=== PATIENT | male | born 1985 | race Caucasian/White ===

== ENCOUNTER 2020-11-16 17:58 | Emergency (ER) | payer SELFPAY ==
[~2020-11-16] VITALS: Ht 175.3 cm; Wt 75.0 kg
[~2020-11-16 17:58] MED LIST: NO HOME MEDICATIONS
[2020-11-16 18:02] VITALS: TEMP 97.5
[2020-11-16 18:21] LABS: BASO % 0.8 % (0.0-2.0); EOS # 0.1 (0.0-0.7); EOS % 1.4 % (0-4.0); GRAN # 2.4 (1.4-6.5); GRAN % 46.8 % (42.2-75.2); HEMOGLOBIN 14.5 g/dl (13.5-18.0); LYMPH # 2.2 (1.2-3.4); MEAN CELL VOLUME 87 fl (80.0-100.0); MEAN CORPUSCULAR HEMOGLOBIN 32 pg (27.0-31.0); MEAN CORPUSCULAR HGB CONC 36 g/dl (33.0-37.0); MEAN PLATELET VOLUME 10.1 fl (7.4-10.4); MONO # 0.4 (0.1-0.6); MONO % 8.4 % (1.7-9.3); PLATELET COUNT 250 K/mm3 (130-400); RED BLOOD COUNT 4.61 M/mm3 (4.20-5.60); REDCELL DISTRIBUTION WIDTH-CV 12.5 % (11.5-14.5)
[2020-11-16 18:31] LABS: ALBUMIN 4.2 gm/dL (3.5-5.0); BILIRUBIN,TOTAL 0.3 mg/dL (0.0-1.0); CALCIUM 8.9 mg/dL (8.4-10.2); CREATININE, serum 0.97 (0.66-1.25); POTASSIUM 3.7 mmol/L (3.4-5.0); TOTAL PROTEIN 8.1 gm/dL (6.4-8.2)
[2020-11-16 18:45] LABS: INR 0.9 (0.8-3.0); PROTHROMBIN TIME 10.3 SECONDS (9.7-12.8)
[2020-11-16] MEDS ORDERED: BACTROBAN22 TOP (19:40)
[2020-11-16] MEDS ORDERED: PERCOCET 325 MG1 TA2 PO (19:40)
[2020-11-16] MEDS ORDERED: ZOFRAN ODT4 MG PO (19:40)
[2020-11-16] MEDS ORDERED: CRUTCHES MC (19:48)
[2020-11-16 20:03] VITALS: BP 148/70; PULSE 76
== END 2020-11-16 20:03 | disposition home or self-care (01) ==
LOC: COL.ER 17:58
PROVIDERS: Emergency Medicine
DX: S82.142A Displaced bicondylar fracture of left tibia, initial encounter for closed fracture (principal); S82.402A Unspecified fracture of shaft of left fibula, initial encounter for closed fracture; F17.210 Nicotine dependence, cigarettes, uncomplicated; V29.60XA Unspecified motorcycle rider injured in collision with unspecified motor vehicles in traffic accident, initial encounter
CPT/HCPCS: J2405; J3010; Q9967

== ENCOUNTER → 2021-01-13 | Outpatient (CLI) | payer BC ==
[~2021-01-13] MED LIST changes: +BACTROBAN22 TOP; +CRUTCHES MC; +PERCOCET 325 MG1 TA2 PO; +ZOFRAN ODT4 MG PO
== END ==
LOC: COL.RAD 11:30
DX: Q43.3 Congenital malformations of intestinal fixation (principal); N20.0 Calculus of kidney; K40.90 Unilateral inguinal hernia, without obstruction or gangrene, not specified as recurrent
CPT/HCPCS: Q9967